=== PATIENT | male | born 1940 | race Caucasian/White ===

== ENCOUNTER 2019-03-07 09:46 | Day surgery (SDC) | payer OTHER ==
[~2019-03-07] VITALS: Ht 182.9 cm; Wt 95.5 kg
[~2019-03-07 09:46] MED LIST: ADVANCED EYE H1 EAC1 PO
[2019-03-07] MEDS ORDERED: CYAN500 ×2 (10:27→10:28)
== END 2019-03-07 11:38 | disposition home or self-care (01) ==
LOC: ORSCSDS 09:46
PROVIDERS: Student in an Organized Health Care Education/Training Program
PROC: 0DB48ZX Excision of Esophagogastric Junction, Via Natural or Artificial Opening Endoscopic, Diagnostic (ICD-10-PCS; principal; 2019-03-07 11:15)
PROC: 0DB58ZX Excision of Esophagus, Via Natural or Artificial Opening Endoscopic, Diagnostic (ICD-10-PCS; principal; 2019-03-07 11:15)
PROC: 0DB68ZX Excision of Stomach, Via Natural or Artificial Opening Endoscopic, Diagnostic (ICD-10-PCS; principal; 2019-03-07 11:15)
PROC: 0DB98ZX Excision of Duodenum, Via Natural or Artificial Opening Endoscopic, Diagnostic (ICD-10-PCS; principal; 2019-03-07 11:15)
DX: R10.13 Epigastric pain (principal); K29.80 Duodenitis without bleeding; K29.50 Unspecified chronic gastritis without bleeding; K21.0 Gastro-esophageal reflux disease with esophagitis
CPT/HCPCS: 88305; 88342; J2704; J7120

== ENCOUNTER → 2019-05-31 | Outpatient (CLI) | payer OTHER ==
[~2019-05-31] MED LIST changes: +CYAN500
== END | disposition home or self-care (01) ==
LOC: LAB SHORT 08:24 → PLD 08:24
DX: D04.22 Carcinoma in situ of skin of left ear and external auricular canal (principal); L81.4 Other melanin hyperpigmentation
CPT/HCPCS: 88305